=== PATIENT | male | born 1940 | race Caucasian/White ===

== ENCOUNTER 2021-01-26 08:12 | Outpatient (CLI) | payer MEDICARE, BC ==
[2021-01-26 08:39] LABS: ALT (SGPT) 13 U/L (8-55); AST (SGOT) 16 U/L (5-34); Albumin 4.3 g/dL (3.4-4.8); Alkaline Phosphatase 53 U/L (40-110); Anion Gap 14 mmol/L (10-20); BUN (Urea Nitrogen) 10 mg/dL (8.4-25.7); Bilirubin, Total 0.7 mg/dL (0.2-1.2); Calc. Creatinine Clearance 0 mL/min (70-130); Calcium 9.2 mg/dL (7.8-10.44); Carbon Dioxide 27 mmol/L (23-31); Cardiac Risk 3.8 (Less than 4.5); Chloride 101 mmol/L (98-107); Cholesterol 173 mg/dl (< 200 Desired); Globulin 3.1 g/dL (2.4-3.5); Glucose 114 mg/dL (83-110); HDL Cholesterol 45 mg/dL (>60 Neg Risk); LDL Cholesterol, Calculated 109 mg/dL; Potassium 4.6 mmol/L (3.5-5.1); Protein, Total 7.4 g/dL (5.8-8.1); Sodium 137 mmol/L (136-145); Triglycerides 93 mg/dL (Less than 150)
== END 2021-01-26 08:13 | disposition home or self-care (01) ==
LOC: MADLAB 08:12
PROVIDERS: ATTEND Nurse Practitioner Family
DX: E03.9 Hypothyroidism, unspecified (principal); E78.00 Pure hypercholesterolemia, unspecified
CPT/HCPCS: 36415; 80053; 80061; 84443

== ENCOUNTER 2022-08-18 08:26 | Emergency (ER) | payer MEDICARE, BC ==
[2022-08-18] MEDS ORDERED: Famotidine 20 MG TAB ONE ×2 (08:54→09:10)
[2022-08-18] MEDS ORDERED: diphenhydrAMINE 25 MG CAP ONE (08:54)
[2022-08-18] MEDS ORDERED: methylPREDNISolone Sod Succ/PF 125 MG/2 ML VIAL ONE (08:54)
== END 2022-08-18 09:26 | disposition home or self-care (01) ==
LOC: MADERS 08:26
DX: L50.0 Allergic urticaria (principal); T50.995A Adverse effect of other drugs, medicaments and biological substances, initial encounter; I10 Essential (primary) hypertension; E78.00 Pure hypercholesterolemia, unspecified; E03.9 Hypothyroidism, unspecified; K21.9 Gastro-esophageal reflux disease without esophagitis; Z87.891 Personal history of nicotine dependence; Z79.82 Long term (current) use of aspirin; Z79.899 Other long term (current) drug therapy
CPT/HCPCS: 96372; 99283; J2930

== ENCOUNTER 2022-08-20 06:05 | Emergency (ER) | payer MEDICARE, BC ==
[2022-08-20] MEDS ORDERED: Famotidine 20 MG TAB ONE (06:58)
[2022-08-20] MEDS ORDERED: Dexamethasone 10 MG/ML VIAL ONE (06:58)
[2022-08-20] MEDS ORDERED: diphenhydrAMINE 12.5 MG/5 ML UDCUP ONE (06:58)
== END 2022-08-20 07:20 | disposition home or self-care (01) ==
LOC: MADERS 06:05
DX: L50.9 Urticaria, unspecified (principal); I10 Essential (primary) hypertension; E78.00 Pure hypercholesterolemia, unspecified; E03.9 Hypothyroidism, unspecified; K21.9 Gastro-esophageal reflux disease without esophagitis; Z87.891 Personal history of nicotine dependence; Z79.82 Long term (current) use of aspirin; Z79.899 Other long term (current) drug therapy
CPT/HCPCS: 96372; 99282; J1100; Q0163

== ENCOUNTER 2022-11-29 18:48 | Emergency (ER) | payer MEDICARE, BC ==
[~2022-11-29 18:48] MED LIST: Iopamidol 370 76% 100 ML VIAL ONE
[2022-11-29 19:14] LABS: #Basophils 0.1 thou/uL (0.0-0.2); #Eosinphils 0.1 thou/uL (0.0-0.7); #Lymphocytes 1.2 thou/uL (1.20-3.40); #Monocytes 0.6 thou/uL (0.11-0.59); #Neutrophils 8.8 thou/uL (1.40-6.50); %Basophils 0.6 % (0.0-1.0); %Lymphocytes 10.7 % (21.0-51.0); %Monocytes 5.5 % (0.0-10.0); %Neutrophils 82.2 % (42.0-75.0); Hemoglobin 15.1 g/dL (14.0-18.0); Mean Corpuscular HGB CONC 33.3 g/dL (32.0-36.0); Mean Corpuscular Hemoglobin 29.3 pg (27.0-31.0); Mean Platelet Volume 8.5 fL (7.4-10.4); Platelet Count 177 10x3/uL (130-400); RBC Distribution Width 12.4 % (11.5-14.5); Red Blood Cell (RBC) Count 5.16 mill/uL (4.70-6.10); White Blood Cell (WBC) Count 10.7 10x3/uL (4.8-10.8)
[2022-11-29] MEDS ORDERED: Magnesium 2 GM/50 ML BAG (IN WATER) ONE (19:29)
[2022-11-29] MEDS ORDERED: Morphine 4 MG/ML VIAL ONE ×2 (19:34→20:38)
[2022-11-29] MEDS ORDERED: Ondansetron PF 4 MG/2 ML Vial ONE (19:34)
[2022-11-29 19:36] LABS: ALT (SGPT) 14 U/L (8-55); AST (SGOT) 18 U/L (5-34); Albumin 4.1 g/dL (3.4-4.8); Alkaline Phosphatase 47 U/L (40-110); Anion Gap 17 mmol/L (10-20); BUN (Urea Nitrogen) 13 mg/dL (8.4-25.7); Bilirubin, Total 0.7 mg/dL (0.2-1.2); Calc. Creatinine Clearance 0 mL/min (70-130); Carbon Dioxide 21 mmol/L (23-31); Chloride 107 mmol/L (98-107); Estimated GFR 69; Globulin 2.6 g/dL (2.4-3.5); Glucose 158 mg/dL (83-110); Potassium 4.4 mmol/L (3.5-5.1); Protein, Total 6.7 g/dL (5.8-8.1); Sodium 141 mmol/L (136-145)
[2022-11-29 19:46] LABS: CKMB 2.3 ng/mL (0-6.6)
[2022-11-29] MEDS ORDERED: niCARdipine 25 MG/10 ML VIAL ONE (20:10)
[2022-11-29] MEDS ORDERED: Aspirin Chewable 81 MG TAB ONE (20:52)
== END 2022-11-29 21:30 | disposition short-term general hospital (02) ==
LOC: MADERS 18:48
DX: I49.9 Cardiac arrhythmia, unspecified (principal); K80.20 Calculus of gallbladder without cholecystitis without obstruction; I16.1 Hypertensive emergency; N28.1 Cyst of kidney, acquired; R79.89 Other specified abnormal findings of blood chemistry; I10 Essential (primary) hypertension; E03.9 Hypothyroidism, unspecified; K21.9 Gastro-esophageal reflux disease without esophagitis; E78.5 Hyperlipidemia, unspecified; Z87.891 Personal history of nicotine dependence
CPT/HCPCS: 74177; 80053; 82553; 83690; 83735; 83880; 84484; 85025; 93005; 96365; 96367; 96375; 96376; J2270; J2405; J3475; Q9967